=== PATIENT | female | born 1965 | race Caucasian/White ===

== ENCOUNTER 2016-02-20 12:07 | Inpatient (IN) | payer MEDICAID, OTHER ==
[~2016-02-20] VITALS: Ht 160 cm; Wt 76.6 kg
[2016-02-20] MEDS: THIAMINE 100 MG in SODIUM CHLORIDE 0.9% 50 ML IV SCH (09:00)
[2016-02-20] MEDS ORDERED: OPTIRAY 350 100 ML VIAL HMH IV ONE (12:08)
[2016-02-20] MEDS ORDERED: SODIUM CHLORIDE 0.9% 1,000 ML ONE ×4 (12:33→22:09)
[2016-02-20] MEDS ORDERED: ONDANSETRON 4 MG VIAL ONE (12:57)
[2016-02-20] MEDS ORDERED: HYOSCYAMINE 0.5 MG/ML AMP 1 ML ONE (12:57)
[2016-02-20] MEDS ORDERED: DIPHENOXYLATE/ATROP TAB 2.5 MG TAB ONE (12:58)
[2016-02-20] MEDS ORDERED: SODIUM CHLORIDE 0.9% 1,000 ML IV ONE (18:30)
[2016-02-20] MEDS ORDERED: DILAUDID 1 MG/ML AMP IV PRN (18:30)
[2016-02-20] MEDS ORDERED: NOREPINEPHRINE 16 MG in DEXTROSE 5% 234 ML IV SCH (18:30)
[2016-02-20] MEDS ORDERED: ONDANSETRON 4 MG VIAL IV PUSH PRN (18:30)
[2016-02-20] MEDS ORDERED: SALINE FLUSH 10 ML FLUSH PRN (18:40)
[2016-02-21] VITALS (36 sets, daily range): BP systolic 80–118; RESP 12–20; TEMP 97.6–99.2; Ht 160 cm; Wt 76.6 kg
[2016-02-21] MEDS ORDERED: SODIUM CHLORIDE 0.9% 2,000 ML ONE (01:05)
[2016-02-21] MEDS ORDERED: Flu Vaccine Quadrivalent 60 MCG/0.5 ML IM.VACC ONE (02:20)
[2016-02-21] MEDS: METRONIDAZOLE 500MG/100ML 100 ML IV SCH ×4 (02:28→17:05)
[2016-02-21] MEDS: LEVOFLOXACIN 750 MG/150 ML 150 ML IV SCH ×2 (02:28→12:19)
[2016-02-21] MEDS: SALINE FLUSH 10 ML FLUSH SCH ×3 (02:28→20:16)
[2016-02-21] MEDS: FAMOTIDINE 20 MG INJ IV SCH ×3 (02:29→20:13)
[2016-02-21] MEDS: SODIUM CHLORIDE 0.9% 1,000 ML IV SCH ×3 (03:14→23:56)
[2016-02-21] MEDS: SODIUM CHLORIDE 0.9% FLUSH BAG 500 ML IV SCH (06:00)
[2016-02-21] MEDS: MAGNESIUM SULF 1 GM/100 ML 100 ML IV SCH ×2 (07:58→10:58)
[2016-02-21] MEDS: THIAMINE 100 MG in SODIUM CHLORIDE 0.9% 50 ML IV SCH (07:59)
[2016-02-21] MEDS ORDERED: SODIUM CHLORIDE 0.9% 1,000 ML IV ONE (15:00)
[2016-02-21] MEDS: TOPIRAMATE 25 MG TAB PO SCH (18:23)
[2016-02-21] MEDS ORDERED: ACETAMINOPHEN 325 MG TAB PO PRN (20:05)
[2016-02-21] MEDS ORDERED: ACETAMINOPHEN 325 MG TAB ONE (20:09)
[2016-02-21] MEDS: PAROXETINE HCL 20 MG TAB PO SCH (20:13)
[2016-02-21] MEDS: TRAZODONE 100 MG TAB PO PRN (20:22)
[2016-02-22] VITALS (43 sets, daily range): BP systolic 65–139; RESP 11–21; TEMP 97.5–98.1
[2016-02-22] MEDS: METRONIDAZOLE 500MG/100ML 100 ML IV SCH ×2 (00:15→08:00)
[2016-02-22] MEDS: SODIUM CHLORIDE 0.9% FLUSH BAG 500 ML IV SCH (06:00)
[2016-02-22] MEDS: TOPIRAMATE 25 MG TAB PO SCH ×2 (07:58→17:02)
[2016-02-22] MEDS: SALINE FLUSH 10 ML FLUSH SCH ×2 (07:59→20:11)
[2016-02-22] MEDS: FAMOTIDINE 20 MG INJ IV SCH (07:59)
[2016-02-22] MEDS: THIAMINE 100 MG in SODIUM CHLORIDE 0.9% 50 ML IV SCH (08:00)
[2016-02-22] MEDS: LEVOFLOXACIN 750 MG/150 ML 150 ML IV SCH (08:00)
[2016-02-22] MEDS: FAMOTIDINE 20 MG TAB PO SCH ×2 (10:10→20:10)
[2016-02-22] MEDS ORDERED: SODIUM CHLORIDE 0.9% 500 ML IV ONE (10:10)
[2016-02-22] MEDS: THIAMINE 100 MG TAB PO SCH (10:10)
[2016-02-22] MEDS: MIDODRINE 10 MG TAB PO SCH ×2 (11:26→17:02)
[2016-02-22] MEDS: TRAZODONE 100 MG TAB PO PRN (20:10)
[2016-02-22] MEDS: PAROXETINE HCL 20 MG TAB PO SCH (20:10)
[2016-02-23] VITALS (25 sets, daily range): BP systolic 82–122; RESP 10–22; TEMP 97.3–98.6
[2016-02-23] MEDS: SODIUM CHLORIDE 0.9% FLUSH BAG 500 ML IV SCH (06:12)
[2016-02-23] MEDS: MIDODRINE 10 MG TAB PO SCH ×3 (06:12→17:25)
[2016-02-23] MEDS: SALINE FLUSH 10 ML FLUSH SCH ×2 (08:00→20:44)
[2016-02-23] MEDS: FAMOTIDINE 20 MG TAB PO SCH ×2 (08:32→20:42)
[2016-02-23] MEDS: THIAMINE 100 MG TAB PO SCH (08:32)
[2016-02-23] MEDS: TOPIRAMATE 25 MG TAB PO SCH ×2 (08:32→17:25)
[2016-02-23] MEDS ORDERED: COSYNTROPIN 0.25 MG/ML VIAL IV ONE (11:00)
[2016-02-23] MEDS ORDERED: MISSING DOSE XX ONE ×2 (11:35→21:50)
[2016-02-23] MEDS: PAROXETINE HCL 20 MG TAB PO SCH (20:42)
[2016-02-23] MEDS: TRAZODONE 100 MG TAB PO PRN (22:23)
[2016-02-24 03:56] VITALS: BP_SYST 115; RESP 16; TEMP 97.5
[2016-02-24] MEDS: SODIUM CHLORIDE 0.9% FLUSH BAG 500 ML IV SCH (06:00)
[2016-02-24] MEDS: MIDODRINE 10 MG TAB PO SCH ×2 (06:44→12:17)
[2016-02-24 07:11] VITALS: BP_SYST 93; RESP 20; TEMP 97.5
[2016-02-24] MEDS: SALINE FLUSH 10 ML FLUSH SCH (08:22)
[2016-02-24] MEDS: THIAMINE 100 MG TAB PO SCH (08:22)
[2016-02-24] MEDS: TOPIRAMATE 25 MG TAB PO SCH (08:22)
[2016-02-24] MEDS: FAMOTIDINE 20 MG TAB PO SCH (08:23)
[2016-02-24 11:42] VITALS: BP_SYST 123; RESP 20; TEMP 98
[2016-02-24 12:30] VITALS: BP_SYST 123; RESP 20; TEMP 98
== END 2016-02-24 20:33 | disposition home or self-care (01) | DRG 872 ==
LOC: ENRESERV → ENRESERVDT → ENRESERVTM → ER 12:07 → ENPENDDIS 18:49 → EMR 18:49 → ICU 02-21 02:06 → 4NT 02-23 20:21
PROVIDERS: ADMIT Hospitalist; ATTEND Hospitalist
CPT/HCPCS: 36415; 74177; 80048; 80053; 81003; 82533; 83605; 83630; 83690; 83735; 84100; 85025; 87040; 87045; 87046; 87493; 94799; 96361; 96365; 96366; 96367; 96375; 99223; 99233; 99238